=== PATIENT | male | born 1980 | race Caucasian/White ===

== ENCOUNTER 2018-01-16 12:03 | Emergency (ER) | payer OTHER ==
[2018-01-16 12:21] VITALS: PULSE 71; O2SAT 98
--- NOTE | 2018-01-16 12:28 | ERPHSYRPT ---
- History of Present Illness Time Seen by Provider: 01/16/18 12:25 Source: patient Exam Limitations: no limitations Patient Subjective Stated Complaint: cough, stomach upset, dizziness Triage Nursing Assessment: Pt c/o of cough, diarhea, and dizziness, appetite normal but then has diarhea, bowel sounds heard in all 4 quadrants, vitals wnl, denies shortness of breath, lungs clear, denies pain, afebrile Physician History: 37 y/o white male presents with cough, diarrhea and dizziness x 2 days. appetite is normal. pt left work early yesterday because of coughing spell. pt denies sore throat, denies cp, denies neck pain, denies soa, and denies abd pain. Timing/Duration: day(s) (2), improved (today) Cough Quality/Degree: mild, dry cough Possible Cause: no prior episodes Modifying Factors: Improves With: coughing Associated Symptoms: cough, dizziness (mild), No fever, No earache, No nasal congestion, No nasal drainage, No shortness of breath, No sore throat International travel in last 2 weeks: No Allergies/Adverse Reactions: No Known Drug Allergies Allergy (Verified 01/16/18 12:21) Hx Influenza Vaccination/Date Given: No - Review of Systems Constitutional: No Symptoms Eyes: No Symptoms Ears, Nose, & Throat: No Symptoms Respiratory: No Symptoms Cardiac: No Symptoms, No Chest Pain, No Palpitations, No Syncope Abdominal/Gastrointestinal: Diarrhea (a few mild episodes), No Abdominal Pain, No Nausea, No Vomiting Genitourinary Symptoms: No Symptoms, No Dysuria, No Frequency, No Hematuria Musculoskeletal: No Symptoms Skin: No Symptoms Neurological: No Symptoms Psychological: No Symptoms Endocrine: No Symptoms Hematologic/Lymphatic: No Symptoms Immunological/Allergic: No Symptoms All Other Systems: Reviewed and Negative - Past Medical History Pertinent Past Medical History: Yes Neurological History: No Pertinent History ENT History: No Pertinent History Cardiac History: No Pertinent History Respiratory History: No Pertinent History Endocrine Medical History: No Pertinent History Musculoskeletal History: No Pertinent History GI Medical History: No Pertinent History, Hernia, Other History: No Pertinent History Psycho-Social History: No Pertinent History Male Reproductive Disorders: No Pertinent History Other Medical History: bowel problems - Past Surgical History Past Surgical History: Yes Neuro Surgical History: No Pertinent History Cardiac: No Pertinent History Respiratory: No Pertinent History Gastrointestinal: No Pertinent History, Hernia Repair Genitourinary: No Pertinent History Musculoskeletal: No Pertinent History Male Surgical History: No Pertinent History, Vasectomy - Social History Smoking Status: Former smoker Exposure to second hand smoke: No Drug Use: none Patient Lives Alone: No - Nursing Vital Signs Nursing Vital Signs: Initial Vital Signs Pulse Rate 71 01/16/18 12:10 Blood Pressure 147/89 01/16/18 12:10 O2 Sat by Pulse Oximetry 96 01/16/18 12:10 Pain Scale Pain Intensity 0 - Physical Exam General Appearance: no apparent distress, alert Eye Exam: PERRL/EOMI Ears, Nose, Throat Exam: normal ENT inspection, moist mucous membranes Neck Exam: normal inspection, non-tender, supple, full range of motion Respiratory Exam: normal breath sounds, lungs clear, airway intact, No chest tenderness, No respiratory distress, No accessory muscle use, No rhonchi, No wheezing, No stridor Cardiovascular Exam: regular rate/rhythm, normal heart sounds, normal peripheral pulses Gastrointestinal/Abdomen Exam: soft, normal bowel sounds, No tenderness, No guarding, No rebound Rectal Exam: not done Back Exam: normal inspection, normal range of motion, No CVA tenderness, No vertebral tenderness Extremity Exam: normal inspection, normal range of motion, pelvis stable Neurologic Exam: alert, oriented x 3, cooperative, 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 follow up with primary doctor for further management Prescriptions: Albuterol 8 gm Mdi Hfa [Ventolin Hfa MDI] 8 gm IH Q4H #1 [id number].[id number] Azithromycin 250 mg [Zithromax 250 MG TABLET] 250 mg PO ZPACK #6 tablet Hydrocodone Bit/Acetaminophen [Hydrocodone-Acetaminophen Soln] 10 ml PO Q6H # 120 ml Prednisone 10 mg [Deltasone 10 mg] 10 mg PO TID #12 tablet
[2018-01-16 13:56] VITALS: BP 114/83
== END 2018-01-16 13:57 | disposition home or self-care (01) ==
LOC: ED 12:03
DX: J40 Bronchitis, not specified as acute or chronic (principal); R42 Dizziness and giddiness; R19.7 Diarrhea, unspecified
CPT/HCPCS: 99283